=== PATIENT | female | born 1950 | race American Indian/Alaskan Native ===

== ENCOUNTER 2018-09-08 19:33 | Emergency (ER) | payer MEDICARE, MEDICAID, OTHER ==
[2018-09-08 19:34] VITALS: BMI 19.8
--- NOTE | 2018-09-08 20:17 | ED PDOC ---
Lower Extremity Pain/Injury Time Seen by Provider: 09/08/18 20:15 Chief Complaint (Nursing): Lower Extremity Problem/Injury Chief Complaint (Provider): LOWER EXTREMITY SWELLING History Per: Patient (68 Y/O FEMALE H/O CHRONIC LOWER EXTREMITY EDEMA HERE FOR CONTINUED SWELLING DESITE USE OF LASIX. HAS BEEN SEEN IN [facility] 08/30 WITH US WNL. PATIENT UNABLE TO SEE PMD TODAY DUE TO SHORT OFFICE HOURS.) Past Medical History Reviewed: Historical Data, Nursing Documentation, Vital Signs Vital Signs: Last Vital Signs Temp 98.3 F 09/08/18 19:37 Pulse 118 H 09/08/18 19:37 Resp 20 09/08/18 19:37 BP 156/104 H 09/08/18 19:37 Pulse Ox 100 09/08/18 19:37 - Medical History PMH: Arthritis, COPD, Hepatitis, HTN Denies: Chronic Kidney Disease - Surgical History Surgical History: Tonsillectomy - Family History Family History: States: Unknown Family Hx - Immunization History Hx Tetanus Toxoid Vaccination: Yes Hx Influenza Vaccination: Yes Hx Pneumococcal Vaccination: Yes - Home Medications Home Medications: Ambulatory Orders Medication Instructions Recorded Albuterol HFA [Ventolin HFA 90 1 puff IH QID PRN #1 puff 08/02/18 mcg/actuation (8 g)] Gabapentin [Neurontin] 300 mg PO TID #15 cap 08/15/18 Tiotropium [Spiriva] 18 mcg IH DAILY #1 inhaler 08/15/18 metFORMIN [glucOPHAGE] 500 mg PO BID 30 Days #60 tab 08/15/18 Ibuprofen [Motrin Tab] 600 mg PO Q6 #15 tab 08/30/18 amLODIPine [Norvasc] 10 mg PO DAILY 08/30/18 Naproxen 375 mg PO BID PRN #20 tablet 09/02/18 - Allergies Allergies/Adverse Reactions: Allergies Allergy/AdvReac Type Severity Reaction Status Date / Time No Known Allergies Allergy Verified 09/02/18 19:03 Review of Systems ROS Statement: Except As Marked, All Systems Reviewed And Found Negative Musculoskeletal: Positive for: Other (LOWER EXTREMITY EDEMA) Physical Exam - Reviewed Nursing Documentation Reviewed: Yes Vital Signs Reviewed: Yes - Physical Exam Appears: Positive for: Well, Non-toxic, No Acute Distress Head Exam: Positive for: ATRAUMATIC, NORMAL INSPECTION, NORMOCEPHALIC Skin: Positive for: Normal Color, Warm, DRY Eye Exam: Positive for: EOMI, Normal appearance, PERRL ENT: Positive for: Normal ENT Inspection Neck: Positive for: Normal, Painless ROM Cardiovascular/Chest: Positive for: Regular Rate, Rhythm Respiratory: Positive for: CNT, Normal Breath Sounds Gastrointestinal/Abdominal: Positive for: Normal Exam, Soft Back: Positive for: Normal Inspection Extremity: Positive for: Normal ROM, Swelling (1 PLUS EDEMA BILATERAL LOWER EXTREMITY) Neurologic/Psych: Positive for: Alert, Oriented - ECG O2 Sat by Pulse Oximetry: 100 - Progress ED Course And Treament: MOTRIN 400 MG X 1 DOSE Disposition - Clinical Impression Clinical Impression: Lower extremity edema - Patient ED Disposition Is Patient to be Admitted: No - Disposition Disposition: Routine/Home Disposition Time: 20:18 Condition: STABLE Instructions: Dependent Edema (DC)
[2018-09-08 21:30] VITALS: BP 154/92; PULSE 94; RESP 18; TEMP 98.1; O2SAT 96
== END 2018-09-08 21:30 | disposition home or self-care (01) ==
LOC: H.ER 19:33
DX: R60.0 Localized edema (principal)